=== PATIENT | female | born 2005 | race Caucasian/White ===

== ENCOUNTER 2024-11-14 11:53 | Emergency (ER) | payer SELFPAY ==
--- NOTE | ~2024-11-14 | XR_ITS ---
EXAMINATION: XR HAND, LEFT CLINICAL INFORMATION: lac to base of 1st finger COMPARISON: None available. TECHNIQUE: PA, lateral, and oblique views of the left hand. FINDINGS: No fracture, dislocation, or suspicious bony lesion. Normal alignment. Negative ulnar variance. No arthritic changes. Soft tissue defect radial and volar aspect overlying second MCP joint. No radiopaque foreign body. XR/XR hand LT min 3V IMPRESSION: 1. Small soft tissue defect radial and volar aspect overlying second MCP joint. 2. No acute fracture, dislocation, or radiopaque foreign body. Electronically signed by: Jared Angulo MD 11/14/2024 02:40 PM [facility] [place]
[2024-11-14 11:58] VITALS: BP 129/70; PULSE 83; RESP 18; TEMP 37.6; O2SAT 100; BMI 14.8
--- NOTE | 2024-11-14 12:02 | ED.WOUNDLAC ---
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 Patient states that she was washing dishes when she accidentally lacerated her left hand with a glass cup. She is left-hand dominant. No Numbness, tingling or weakness in her left hand. No other complaints or concerns at this time. Onset (ago): day(s) Place: home Patient tetanus UTD: Yes Context: accidental Associated symptoms: none Related Data Previous Rx's ?Medication ?Instructions ?Recorded cephalexin 500 mg capsule 500 mg PO QID 5 days #20 caps 11/14/24 Allergies Allergy/AdvReac Type Severity Reaction Status Date / Time No Known Allergies Allergy Verified 11/14/24 12:05 Review of Systems Review of Systems: Yes all other systems are reviewed and are negative [facility] Social History Social History Advance Directives: No Advance Directives Information Provided: Yes Do you have a plan to hurt others: No Plan Physical Exam Vital Signs: Vital Signs: Last Vital Signs Temp 99.7 F 11/14/24 14:41 Pulse 83 11/14/24 14:41 Resp 18 11/14/24 14:41 BP 129/70 11/14/24 14:41 Pulse Ox 100 11/14/24 14:41 O2 Del Method Room Air 11/14/24 14:41 BMI result Body Mass Index 14.8 Const: Other: General: Awake, alert, and oriented X3. No acute distress. HEENT: Normal inspection CVS: Normal heart rate and rhythm. Pulses normal. Respiratory: No respiratory distress Skin: Left hand, at the proximal IP joint, just superior the 2nd metacarpal bone there is 3.5 cm partial-thickness laceration, curved, extending from the dorsum, extending into the palmar surface. Full ROM digits and hand, strong radial pulse. Extremities: Normal to inspection, see above report Neuro: Oriented X 3. No motor deficit. No sensory deficit. Course Course Course Narrative: This is a Rapid Medical Examination (RME) performed by Tod Hickey PA-C in triage. Full HPI, ROS, assessment and treatment plan per primary provider in the Main ED. 19 yo female presents to the ER for evaluation of a laceration to her left hand sustained about 1.5 hours ago while washing dishes and a glass broke. she reports it is still bleeding. FROM of the 1st digit with an irregular laceration at the base and lateral aspect of the 1st digit, slight oozing. needs tdap Plan: xr to r/o bony involvement, tdap, lac repair Medications Administered Discontinued Medications Generic Name Dose Route Start Last Admin Trade Name Freq PRN Reason Stop Dose Admin Bacitracin 1 appl 11/14/24 14:39 11/14/24 14:42 Bacitracin Oint 0.9 Gm Packet TOPICAL 11/14/24 14:40 1 appl ONCE ONE Administration Protocol Diphtheria/Tetanus/Acell Pertussis 0.5 ml 11/14/24 12:06 11/14/24 13:43 Diphth,Pertus(Acell),Tet Adult 0.5 Ml Syringe IM 11/14/24 12:07 Not Given .ONCE ONE Lidocaine HCl 5 ml 11/14/24 13:38 11/14/24 14:11 Lidocaine Hcl 1 % Mpf 5 Ml Vial SUBCUT 11/14/24 13:39 5 ml ONCE ONE Administration Medical Decision Making Medical Decision Making [facility] Narrative: This is a 19-year-old female who presents emergency department with complaints of laceration to left hand which occurred this morning. On arrival, 3-1/2 cm laceration noted to the left hand. X-ray was obtained revealing no acute bony fractures or foreign body. Wound was extensively cleansed with saline and Betadine. Seven sutures were placed to the wound. Patient was able to check her medical records, her tetanus is up-to-date therefore this was not administered to her today.. Patient tolerated procedure well. See procedure note for detail. Discharged on Keflex. Given strict return precautions. She has full range of motion of the hand without difficulty. Patient stable for discharge. Differential Diagnosis Differential Diagnoses: The differential diagnosis associated with the presentation includes Laceration, abrasion, puncture wound Radiology Impression Discussion of test interpretation with radiology: I have reviewed the radiologist's reading. Radiologist Impression: XR/XR hand LT min 3V IMPRESSION: 1. Small soft tissue defect radial and volar aspect overlying second MCP joint. 2. No acute fracture, dislocation, or radiopaque foreign body. Electronically signed by: Jared Angulo MD 11/14/2024 02:40 PM [facility] [place] Dictated By: Jared Angulo MD Independent Historian Clinical information obtained from an independent historian. History obtained from or confirmed by: Parent Procedures Laceration Laceration 1: Site: upper extremity Side (If applicable): left Size (cm): 3.5 Description: other (Curved) Depth: simple, single layer Local Anesthetic: lidocaine 1% Amount of anesthesia used (mL): 4 Pre-repair: wound explored, irrigated extensively and deep structures intact Skin layer closed with: nylon Size (cm): 4-0 Number of sutures: 7 Technique: simple, interrupted Discharge Plan Discharge Clinical Impression: Laceration Patient Disposition: Home, Self-Care Instructions: Care For Your Stitches (ED) Additional Instructions: You were seen in the emergency department due to a laceration. We placed 7 sutures in your left hand. Please have these removed in 10-14 days. You may return here or follow-up with a primary care office to have these removed. Please take prescribed antibiotic as directed, finish the entire course. This will prevent infection. Watch for any signs of infection including but not limited to increased redness, swelling, drainage from the area. If any of these occur, please seek emergent care. Do not submerge wound. You may get wound wet, pat dry if this happens. Remove dressing tomorrow, wash with warm soapy water. Pat dry. Your x-ray was not read prior to your departure from the emergency room, we will call you if there is any abnormal results. If there are abnormal results, you may need to return here. Prescriptions: New cephalexin 500 mg capsule 500 mg PO QID 5 Days Qty: 20 0RF Interventions: ED Discharge Assessment Last Done: 11/14/24 14:41 Discharge Date/Time: 11/14/24 14:47 Print Language: Citizen Of [place]
--- NOTE | 2024-11-14 13:42 | PC.NURSE ---
pt states that she thinks she has had a tetanus booster in the past 5 years. PA notified and instructed to hold Tdap
[2024-11-14] MEDS: Lidocaine HCl 1 % MPF 5 ML VIAL SUBCUT (14:11)
[2024-11-14 14:41] VITALS: BP 129/70; PULSE 83; RESP 18; TEMP 37.6; O2SAT 100
[2024-11-14] MEDS: Bacitracin Oint 0.9 GM PACKET 1 APPL TOPICAL (14:42)
== END 2024-11-14 14:47 | disposition home or self-care (01) ==
PROVIDERS: Emergency Provider Emergency Medicine Emergency Medical Services
DX: S61.412A Laceration without foreign body of left hand, initial encounter (principal); W25.XXXA Contact with sharp glass, initial encounter; Y93.G1 Activity, food preparation and clean up; Y92.009 Unspecified place in unspecified non-institutional (private) residence as the place of occurrence of the external cause; Y99.9 Unspecified external cause status
CPT/HCPCS: 73130; 90471; 99282; 99283; 99284; J2003

== ENCOUNTER → 2024-11-14 12:06 | Outpatient (BNV) | payer SELFPAY | PROVIDERS: Emergency Provider Emergency Medicine Emergency Medical Services; Visit Provider Radiology Diagnostic Radiology | DX: M79.89 Other specified soft tissue disorders (principal) | CPT/HCPCS: 73130 ==